=== PATIENT | female | born 1995 | race Two or more races ===

== ENCOUNTER → 2020-03-15 | Outpatient (CLI) | payer MEDICAID ==
[~2020-03-15] MED LIST: PREN-96 PO
--- NOTE | 2020-03-15 08:58 | NUR ---
[facility] ID #[id number], pt verbalizes and gives consent for covid 19 testing, pre-procedure guidelines after covid 19 test. Pt verbalizes understanding and agrees with POC
== END | disposition home or self-care (01) ==
LOC: LDRP 08:40 → UNDOADMOB 08:40 → UNDODISOB 09:10 → LAB 10:00 → EDSTATUS 03-30 09:53
PROVIDERS: ATTEND Specialist
DX: Z11.59 Encounter for screening for other viral diseases (principal)
CPT/HCPCS: G0378

== ENCOUNTER 2020-03-17 06:10 | Inpatient (IN) | payer MEDICAID ==
[2020-03-17] VITALS (10 sets, daily range): BP systolic 103–120; BP diastolic 56–92
[~2020-03-17] VITALS: Ht 162.6 cm; Wt 88.5 kg
[2020-03-17] MEDS ORDERED: LACTATED RINGER'S 1,000 ML IV SCH ×2 (06:37→14:19)
[2020-03-17] MEDS ORDERED: PREN-96 PO (07:01)
[2020-03-17 07:32] LABS: Basophils # (auto) 0 10 ^3/uL (0-0.2); Basophils % (auto) 0.3 % (0.0-2.0); Eosinophils # (auto) 0.1 10 ^3/uL (0-0.8); Eosinophils % (auto) 0.9 % (0.0-7.0); Hematocrit 39.3 % (36.0-46.0); Hemoglobin 13.5 g/dL (12.2-16.2); Lymphocytes # (auto) 1.7 10 ^3/uL (0.4-5.4); Lymphocytes % (auto) 19.7 % (10.0-50.0); Mean Corpuscular Hemoglobin 28.8 pg (28.0-32.0); Mean Corpuscular Hgb Conc. 34.2 g/dL (32.0-36.0); Mean Corpuscular Volume 84.2 fL (80.0-100.0); Monocytes # (auto) 0.6 10 ^3/uL (0-1.3); Monocytes % (auto) 6.8 % (0.0-12.0); Neutrophils # (auto) 6.2 10 ^3/uL (1.6-8.6); Neutrophils % (auto) 72.3 % (37.0-80.0); Nucleated Red Blood Cells % 0.1 %; Platelet Count (auto) 225 10^3/uL (140-450); Red Blood Cells 4.67 10^6/uL (4.0-5.20); Red Cell Distribution Width 15.6 % (11.8-14.3); White Blood Cell 8.5 10^3/uL (4.4-10.8)
[2020-03-17 07:46] LABS: INR 0.92 (0.9-1.15); Partial Thromboplastin Time 29.6 sec (23.64-32.05)
[2020-03-17 07:51] LABS: Albumin 2.7 g/dL (3.4-5.0); Calcium 9.2 mg/dL (8.5-10.1); Potassium 3.3 mmol/L (3.5-5.1)
[2020-03-17 07:57] LABS: BUN/Creatinine Ratio 14.3; Bilirubin, Total 0.5 mg/dL (0.2-1.0); Total Protein 7.2 g/dL (6.4-8.2)
[2020-03-17 09:48] LABS: Urine Bacteria MANY /hpf (None Seen); Urine Blood Negative /uL (Negative); Urine Mucus FEW (None Seen); Urine Specific Gravity 1.028 (1.001-1.035); Urine WBC 251 /hpf (0 - 5)
[2020-03-17] MEDS ORDERED: fentaNYL CITRATE 100 MCG/2 ML VL ONE (12:55)
[2020-03-17] MEDS ORDERED: MORPHINE SULF(PF) 0.5MG/ML 10ML VIAL ONE (12:55)
[2020-03-17] MEDS ORDERED: ePHEDrine SULFATE 50 MG/ML AMP ONE (12:56)
[2020-03-17] MEDS ORDERED: ONDANSETRON HCL 4 MG/2 ML VIAL ONE (12:56)
[2020-03-17] MEDS ORDERED: TETRACAINE 1% INJ 2 ML VIAL IJ ONE (12:56)
[2020-03-17] MEDS ORDERED: oxyTOCIN 10 UNIT/ML 10ML VIAL ONE (12:56)
[2020-03-17] MEDS ORDERED: GLYCOPYRROLATE 0.2 MG/ML 1ML VIAL ONE (12:56)
[2020-03-17] MEDS ORDERED: SODIUM CITR/CITRIC ACID ORAL SOLN 30 ML ONE (12:58)
[2020-03-17] MEDS ORDERED: MEPERIDINE HCL (25 MG/ML) 1ML VIAL ONE (13:51)
[2020-03-17] MEDS ORDERED: HYDROmorphone HCL 2 MG/ML VL IV PRN (14:30)
[2020-03-17] MEDS ORDERED: ONDANSETRON HCL 4 MG/2 ML VIAL IV PRN ×3 (14:30)
[2020-03-17] MEDS ORDERED: ACETAMINOPHEN IV 1000 MG/100ML (10MG/ML) IV ONE (14:30)
[2020-03-17] MEDS ORDERED: FAMOTIDINE (10MG/ML) 2ML VL IV ONE (14:30)
[2020-03-17] MEDS ORDERED: NALOXONE HCL 0.4 MG/ML VIAL IV PRN (14:30)
[2020-03-17] MEDS ORDERED: NALBUPHINE HCL 10 MG/1ml INJECTION SUBCUT ONE (14:30)
[2020-03-17] MEDS ORDERED: ceFAZolin 1GM/50ML 50 ML IV SCH (14:30)
[2020-03-17] MEDS ORDERED: DexAMETHasone SOD PHOS 10MG/1ML VIAL INJ IV PRN (14:30)
[2020-03-17] MEDS ORDERED: diphenhdrAMINE HCL 50 MG/1 ML VL IV PRN (14:30)
--- NOTE | 2020-03-17 15:05 | NUR ---
PT BROUGHT OVER FROM PACU WITH RN, BEDSIDE REPORT RECEIVED.
--- NOTE | 2020-03-17 15:30 | NUR ---
Teaching: Reviewed information in [facility] [employer] booklet with patient. Discussed benefits of and risks associated with not . Discussed different positions, proper latch, feeding cues, and baby-led . Provided information of medication side effects related to . All questions and concerns addressed at this time. Patient verbalized understanding of information.
[2020-03-17] MEDS: KETOROLAC TROMETH 30 MG/ML 1ML VIAL IV SCH (19:27)
--- NOTE | 2020-03-17 20:00 | NUR ---
Bottle-feeding Education: Patient encouraged to breastfeed. Benefits of and the risk of providing formula to was discussed. Patient verbalized understanding of the benefits and is aware of risk and insists on bottle-feeding. Formula provided and instruction on formula preparation from the [facility] booklet reviewed with patient.
[2020-03-17] MEDS: ceFAZolin 1GM/50ML 50 ML IV SCH (21:19)
[2020-03-18] MEDS: KETOROLAC TROMETH 30 MG/ML 1ML VIAL IV SCH ×2 (01:05→07:26)
[2020-03-18 03:30] VITALS: BP 106/60
[2020-03-18] MEDS: ceFAZolin 1GM/50ML 50 ML IV SCH ×2 (05:17→14:43)
[2020-03-18 07:30] VITALS: BP 113/64
--- NOTE | 2020-03-18 07:41 | NUR ---
Ambulation: Patient OOB with standby assistance by RN. Patient ambulated to bathroom with steady gait. Patient able to void without difficulty. [facility] teaching provided with returned demonstration by patient. Clean gown provided and bed linen changed. Patient ambulated back to bed with steady gait and no distress noted.
[2020-03-18 08:38] LABS: Basophils # (auto) 0 10 ^3/uL (0-0.2); Basophils % (auto) 0.2 % (0.0-2.0); Eosinophils # (auto) 0.1 10 ^3/uL (0-0.8); Eosinophils % (auto) 0.7 % (0.0-7.0); Hematocrit 37.8 % (36.0-46.0); Hemoglobin 12.9 g/dL (12.2-16.2); Lymphocytes # (auto) 1.5 10 ^3/uL (0.4-5.4); Lymphocytes % (auto) 17.2 % (10.0-50.0); Mean Corpuscular Hemoglobin 28.9 pg (28.0-32.0); Mean Corpuscular Hgb Conc. 34.2 g/dL (32.0-36.0); Mean Corpuscular Volume 84.5 fL (80.0-100.0); Monocytes # (auto) 0.3 10 ^3/uL (0-1.3); Monocytes % (auto) 3.9 % (0.0-12.0); Neutrophils # (auto) 6.6 10 ^3/uL (1.6-8.6); Platelet Count (auto) 200 10^3/uL (140-450); Red Blood Cells 4.47 10^6/uL (4.0-5.20); Red Cell Distribution Width 15.6 % (11.8-14.3); White Blood Cell 8.5 10^3/uL (4.4-10.8)
[2020-03-18] MEDS ORDERED: BISACODYL 10 MG RECT SUPP PR PRN (11:15)
[2020-03-18 11:28] VITALS: BP 109/70
--- NOTE | 2020-03-18 11:58 | NUR ---
Report given to Walter Spicer RN who will assume care of patient.
[2020-03-18 15:01] VITALS: BP 111/66
[2020-03-18] MEDS: HYDROcodone-ACET 5/325MG TAB PO PRN ×2 (15:42→21:31)
[2020-03-18 19:00] VITALS: BP 110/60
[2020-03-18] MEDS: DOCUSATE SOD 100 MG CAP PO SCH (21:31)
[2020-03-18 23:00] VITALS: BP 117/68
[2020-03-19] MEDS: HYDROcodone-ACET 5/325MG TAB PO PRN ×4 (02:09→22:04)
[2020-03-19 03:00] VITALS: BP 113/93
[2020-03-19 07:10] VITALS: BP 129/79
[2020-03-19] MEDS: DOCUSATE SOD 100 MG CAP PO SCH ×2 (09:52→22:03)
[2020-03-19 10:59] VITALS: BP 116/70
--- NOTE | 2020-03-19 12:06 | NUR ---
REPORT GIVEN TO Efrain GREEN RN ON STABLE PATIENT
--- NOTE | 2020-03-19 12:07 | NUR ---
Assumed care of patient after receiving report from A Tu GORMAN .
[2020-03-19] MEDS: IBUPROFEN 800 MG TAB PO PRN (14:25)
[2020-03-19] MEDS ORDERED: TETANUS-DIPTH-ACEL PERTUSSIS 0.5ML SYR Tdap IM ONE (15:00)
[2020-03-19 15:20] VITALS: BP 116/82
--- NOTE | 2020-03-19 18:11 | NUR ---
Discharge: Discharge instructions given as ordered. Pt encouraged to follow up with [facility] as instructed. All questions and concerns addressed. Patient verbalized understanding.
[2020-03-19 19:00] VITALS: BP 127/72
[2020-03-19 23:00] VITALS: BP 125/64
[2020-03-20 03:30] VITALS: BP 133/76
[2020-03-20] MEDS: IBUPROFEN 800 MG TAB PO PRN (03:30)
--- NOTE | 2020-03-20 05:30 | NUR ---
IV removal IV DC'd with clean sterile technique, catheter fully intact. Pressure dressing applied to site. Patient tolerated well.
[2020-03-20] MEDS: HYDROcodone-ACET 5/325MG TAB PO PRN (07:09)
[2020-03-20 07:10] VITALS: BP 126/67
--- NOTE | 2020-03-20 08:32 | NUR ---
Discharge: Discharge instructions given as ordered. Pt encouraged to follow up with [facility] as instructed. All questions and concerns addressed. Patient verbalized understanding. Medication reconciliation completed and copy given to patient. All required/requested vaccines given and copies of vaccinations given to patient. Patient encouraged to prepare to depart unit.
--- NOTE | 2020-03-20 08:55 | NUR ---
Discharge: Patient taken to vehicle via wheelchair with all personal belongings, accompanied by staff and family member. No distress noted at time of departure, no adverse changes in status since initial assessment.
== END 2020-03-20 08:55 | disposition home or self-care (01) | DRG 540 ==
LOC: LDRP 06:10
PROVIDERS: ADMIT Specialist; ATTEND Specialist
PROC: 10D00Z1 Extraction of Products of Conception, Low, Open Approach (ICD-10-PCS; principal; 2020-03-17 13:01)
DX: O34.211 Maternal care for low transverse scar from previous cesarean delivery (principal); O69.2XX0 Labor and delivery complicated by other cord entanglement, with compression, not applicable or unspecified; Z37.0 Single live birth; Z3A.39 39 weeks gestation of pregnancy
CPT/HCPCS: 36415; 51702; 59025; 80053; 81001; 84112; 85025; 85610; 85730; 86592; 86850; 86900; 86901; 90715; 94760; 94762; 96361; 96374; 96375; G0378; J0131; J0690; J1885; J2405; J2590

== ENCOUNTER 2024-07-12 05:21 | Inpatient (IN) | payer MEDICAID ==
[2024-07-11 09:24] LABS: Urine Bacteria FEW /hpf (None Seen); Urine Blood Negative /uL (Negative); Urine Clarity Clear (Clear); Urine Color Yellow (Yellow); Urine Mucus FEW (None Seen); Urine Protein, UAD TRACE (Negative); Urine Specific Gravity 1.012 (1.001-1.035); Urine Urobilinogen Normal (Negative); Urine WBC 1 /hpf (0 - 5)
[2024-07-11 09:42] LABS: Basophils # (auto) 0 10 ^3/uL (0-0.2); Basophils % (auto) 0.2 % (0.0-2.0); Eosinophils # (auto) 0.1 10 ^3/uL (0-0.8); Hematocrit 38.3 % (36.0-46.0); Hemoglobin 13.2 g/dL (12.2-16.2); Lymphocytes # (auto) 1.5 10 ^3/uL (0.4-5.4); Lymphocytes % (auto) 19.6 % (10.0-50.0); Mean Corpuscular Hemoglobin 28.9 pg (28.0-32.0); Mean Corpuscular Hgb Conc. 34.5 g/dL (32.0-36.0); Mean Corpuscular Volume 83.9 fL (80.0-100.0); Monocytes # (auto) 0.5 10 ^3/uL (0-1.3); Monocytes % (auto) 6.6 % (0.0-12.0); Neutrophils # (auto) 5.6 10 ^3/uL (1.6-8.6); Neutrophils % (auto) 72.6 % (37.0-80.0); Nucleated Red Blood Cells % 0.1 %; Platelet Count (auto) 244 10^3/uL (140-450); Red Blood Cells 4.56 10^6/uL (4.0-5.20); Red Cell Distribution Width 15.7 % (11.8-14.3); White Blood Cell 7.7 10^3/uL (4.4-10.8)
[2024-07-11 09:46] LABS: Amphetamine Screen, Urine Neg (NEGATIVE)
[2024-07-11 09:47] LABS: Barbiturate Scree,Urine Neg (NEGATIVE); Benzodiazephine Screen, Urine Neg (NEGATIVE); Cannabinoid Screen, Urine Neg (NEGATIVE); Cocaine Screen, Urine Neg (NEGATIVE); Opiate Scree,Urine Neg (NEGATIVE); Phencyclidine Screen, Urine Neg (NEGATIVE)
[2024-07-11 09:55] LABS: Alanine Aminotransferase 30 U/L (7-40); Albumin 3.7 g/dL (3.2-4.8); Alkaline Phosphatase 290 U/L (46-116); Anion Gap 9 (5-15); Aspartate Aminotransferase 18 U/L (13-40); Bilirubin, Total 0.6 mg/dL (0.2-1.0); Calcium 9.3 mg/dL (8.7-10.4); Carbon Dioxide 22 mmol/L (20-31); Chloride 105 mmol/L (98-107); Glucose 111 mg/dL (74-106); INR 0.96 (0.9-1.15); Partial Thromboplastin Time 29.1 SEC (24.5-34.5); Potassium 3.1 mmol/L (3.5-5.1); Prothrombin Time 10.2 sec (9.3-11.8); Sodium 136 mmol/L (136-145); Total Protein 6.3 g/dL (5.7-8.2); Uric Acid 3.8 mg/dL (3.1-7.8)
[2024-07-11 09:56] LABS: BUN/Creatinine Ratio 12.5 (10.0-20.0); Blood Urea Nitrogen < 5 mg/dL (9-23)
[~2024-07-12] VITALS: Ht 154.9 cm; Wt 103.4 kg
[2024-07-12] VITALS (13 sets, daily range): BP systolic 89–147; BP diastolic 48–87; PULSE 16–90; RESP 15–18; TEMP 97.9–98.7; O2SAT 97–98
[2024-07-12] MEDS ORDERED: ceFAZolin 2 GM/D5W50ml 50 ML IV ONE (10:00)
[2024-07-12] MEDS: LACTATED RINGER'S 1,000 ML IV SCH ×2 (10:00→17:34)
[2024-07-12] MEDS: LACTATED RINGER'S 1,000 ML IV ONE (11:00)
[2024-07-12] MEDS ORDERED: MORPHINE SULF PF 5 MG/10 ML VIAL ONE (11:55)
[2024-07-12] MEDS ORDERED: fentaNYL CITRATE 100 MCG/2 ML VL ONE (11:55)
[2024-07-12] MEDS ORDERED: oxyTOCIN 10 UNIT/ML 10ML VIAL ONE (11:56)
[2024-07-12] MEDS ORDERED: KETOROLAC TROMETH 30 MG/ML 1ML VIAL ONE (11:56)
[2024-07-12] MEDS ORDERED: GLYCOPYRROLATE 0.2 MG/ML 1ML VIAL ONE (11:56)
[2024-07-12] MEDS ORDERED: ePHEDrine SULFATE 50 MG/ML AMP ONE (11:56)
[2024-07-12] MEDS ORDERED: PHENYLEPHRINE HCL 10 MG/ML VL ONE (11:56)
[2024-07-12] MEDS ORDERED: ONDANSETRON HCL 4 MG/2 ML VIAL ONE (11:56)
[2024-07-12] MEDS ORDERED: DexAMETHasone SOD PHOS 10MG/1ML VIAL INJ IV PRN (13:45)
[2024-07-12] MEDS ORDERED: diphenhdrAMINE HCL 50 MG/1 ML VL IV PRN (13:45)
[2024-07-12] MEDS ORDERED: NALOXONE HCL 0.4 MG/ML VIAL IV PRN (13:45)
[2024-07-12] MEDS ORDERED: ONDANSETRON HCL 4 MG/2 ML VIAL IV PRN (13:45)
[2024-07-12] MEDS ORDERED: KETOROLAC TROMETH 30 MG/ML 1ML VIAL IV PRN (13:45)
[2024-07-12] MEDS: POTASSIUM CHL 20 Meq TABLET PO SCH (17:16)
[2024-07-12] MEDS: ACETAMINOPHEN IV 1000 MG/100ML (10MG/ML) IV PRN (17:16)
[2024-07-12] MEDS: ceFAZolin 1GM/50ML 50 ML IV SCH (20:35)
[2024-07-13] VITALS (8 sets, daily range): BP systolic 109–130; BP diastolic 60–72; PULSE 81–108; RESP 16–22; TEMP 97.6–98.1; O2SAT 95–98
[2024-07-13] MEDS: POTASSIUM CHL 20 Meq TABLET PO SCH (04:56)
[2024-07-13] MEDS ORDERED: POTASSIUM CHL 20 Meq TABLET PO SCH (05:00)
[2024-07-13 07:03] LABS: Basophils # (auto) 0 10 ^3/uL (0-0.2); Basophils % (auto) 0.1 % (0.0-2.0); Eosinophils # (auto) 0 10 ^3/uL (0-0.8); Eosinophils % (auto) 0.5 % (0.0-7.0); Hematocrit 34.6 % (36.0-46.0); Hemoglobin 11.9 g/dL (12.2-16.2); Lymphocytes # (auto) 1.3 10 ^3/uL (0.4-5.4); Lymphocytes % (auto) 15.6 % (10.0-50.0); Mean Corpuscular Hemoglobin 29.1 pg (28.0-32.0); Mean Corpuscular Hgb Conc. 34.4 g/dL (32.0-36.0); Mean Corpuscular Volume 84.7 fL (80.0-100.0); Monocytes # (auto) 0.4 10 ^3/uL (0-1.3); Monocytes % (auto) 5.3 % (0.0-12.0); Neutrophils # (auto) 6.4 10 ^3/uL (1.6-8.6); Neutrophils % (auto) 78.5 % (37.0-80.0); Platelet Count (auto) 196 10^3/uL (140-450); Red Blood Cells 4.08 10^6/uL (4.0-5.20); Red Cell Distribution Width 15.5 % (11.8-14.3); White Blood Cell 8.2 10^3/uL (4.4-10.8)
[2024-07-13 07:17] LABS: Alanine Aminotransferase 25 U/L (7-40); Albumin 3.1 g/dL (3.2-4.8); Alkaline Phosphatase 246 U/L (46-116); Anion Gap 8 (5-15); Aspartate Aminotransferase 23 U/L (13-40); Bilirubin, Total 0.7 mg/dL (0.2-1.0); Calcium 9.2 mg/dL (8.7-10.4); Carbon Dioxide 22 mmol/L (20-31); Chloride 106 mmol/L (98-107); Glucose 77 mg/dL (74-106); Potassium 3.6 mmol/L (3.5-5.1); Sodium 136 mmol/L (136-145)
[2024-07-13 07:18] LABS: Total Protein 5.6 g/dL (5.7-8.2)
[2024-07-13 07:20] LABS: BUN/Creatinine Ratio 15.2 (10.0-20.0); Blood Urea Nitrogen < 5 mg/dL (9-23)
[2024-07-13] MEDS: DOCUSATE SOD 100 MG CAP PO SCH (10:00)
[2024-07-13] MEDS ORDERED: BISACODYL 10 MG RECT SUPP PR PRN (10:00)
[2024-07-13] MEDS: DOCUSATE CALCIUM 240 MG CAP PO SCH (10:00)
[2024-07-13] MEDS ORDERED: HYDROcodone-ACET 5/325MG TAB PO PRN (10:00)
[2024-07-13 11:07] LABS: Rubella Antibodies, IgG 0.95 index (Immune >0.99)
[2024-07-13] MEDS: IBUPROFEN 800 MG TAB PO PRN (12:22)
[2024-07-13] MEDS: SIMETHICONE 80 MG CHEWABLE TABLET PO SCH (12:22)
[2024-07-13] MEDS: HYDROcodone-ACET 5/325MG TAB PO PRN (17:07)
[2024-07-14] MEDS ORDERED: DOCU-265 PO (00:21)
[2024-07-14] MEDS ORDERED: IBUP-1455 PO (00:21)
[2024-07-14] MEDS ORDERED: PREN-96 PO (00:21)
[2024-07-14] MEDS ORDERED: HYDR-4902 PO (00:21)
[2024-07-14 03:00] VITALS: BP 124/78; PULSE 96; RESP 20; TEMP 97.9; O2SAT 96
[2024-07-14 06:59] VITALS: BP 131/81; PULSE 105; RESP 17; TEMP 97.7; O2SAT 96
[2024-07-14 10:52] VITALS: BP 111/65; PULSE 97; RESP 17; TEMP 97.6; O2SAT 99
[2024-07-14 11:07] LABS: Treponema Pallidum Ab LC Non Reactive (Non Reactive)
== END 2024-07-14 14:40 | disposition home or self-care (01) | DRG 539 ==
LOC: LDRP 09:56
PROVIDERS: ADMIT Obstetrics & Gynecology; ATTEND Obstetrics & Gynecology
PROC: 10D00Z1 Extraction of Products of Conception, Low, Open Approach (ICD-10-PCS; 2024-07-12)
PROC: 0UB70ZZ Excision of Bilateral Fallopian Tubes, Open Approach (ICD-10-PCS; principal; 2024-07-12 12:27)
DX: O34.211 Maternal care for low transverse scar from previous cesarean delivery (principal); R71.0 Precipitous drop in hematocrit; E87.6 Hypokalemia; O99.284 Endocrine, nutritional and metabolic diseases complicating childbirth; Z30.2 Encounter for sterilization; Z37.0 Single live birth; Z3A.39 39 weeks gestation of pregnancy
CPT/HCPCS: 36415; 59025; 80053; 80307; 81001; 81002; 84550; 85025; 85610; 85730; 86592; 86703; 86762; 86780; 86803; 86850; 86870; 86900; 86901; 87340; 94760; 94762; 96360; 96361; G0378; J0131; J1885; J2405; J2590